=== PATIENT | female | born 1995 | race Caucasian/White ===

== ENCOUNTER 2022-07-09 12:55 | Outpatient (CLI) | payer OTHER, SELFPAY ==
--- NOTE | 2022-07-09 13:00 | CRLHL7_ITS ---
For Patients: As a result of the Cures Act, medical imaging exams and procedure reports are released immediately into your electronic medical record. You may view this report before your referring provider. If you have questions, please contact your health care provider. INDICATION: Evaluate size and dates TECHNIQUE: Ultrasound OB pelvis transvaginal. Real time patel scale imaging of the pelvis was performed. COMPARISON: None FINDINGS: Sonographic imaging demonstrates a single living intrauterine gestation. The embryo demonstrates a regular cardiac rate measuring 157 beats per minute. The embryo`s crown rump length measurement of 3.8 cm corresponds to a gestational age of 9 weeks 1 day with a sonographic due date of 02/08/2023 . There is a normal appearing yolk sac. There are no gross abnormalities noted within the embryo at this early state of development. The placenta has not yet developed. The gestational sac has a normal appearance. 0.5 centimeter x 1.3 centimeter x 0.7 centimeter subchorionic hemorrhage the amount of fluid within the sac appears appropriate for gestational age. The cervix is closed. The myometrium appears normal. The ovaries are of normal size. There are no suspicious fluid collections noted in the cul-de-sac. IMPRESSION: Viable intrauterine . Gestational age calculated at 9 weeks 1 day with a sonographic due date of 02/08/23. This compares to gestational age by LMP is 9 weeks 6 days. 0.5 centimeter x 1.3 centimeter x 0.7 centimeters subchorionic hemorrhage. Dictated by Jayson Simeon MD @ 07/10/2022 12:25:33 PM (Electronically Signed)
== END 2022-07-09 12:56 | disposition home or self-care (01) ==
PROVIDERS: PCP Physician Assistant; Visit Provider Obstetrics & Gynecology
DX: Z34.91 Encounter for supervision of normal pregnancy, unspecified, first trimester (principal); Z3A.09 9 weeks gestation of pregnancy
CPT/HCPCS: 76817

== ENCOUNTER 2022-07-09 14:52 | Outpatient (CLI) | payer OTHER, SELFPAY ==
[2022-07-09 21:43] LABS: Hepatitis B Surface Antigen* Negative (Negative)
[2022-07-09 21:53] LABS: HIV 1/2/P24 Combo Screen* Negative (Negative)
[2022-07-09 22:00] LABS: Hepatitis C Virus Antibody* Negative (Negative)
[2022-07-09 22:57] LABS: Chlamydia DNA Amplified* NOT DETECTED (No Detected); GC DNA Amplified* NOT DETECTED (No Detected)
[2022-07-11 23:16] LABS: Rapid Plasma Reagin (RPR) Non Reactive (Non Reactive)
[2022-07-12 07:40] LABS: Rubella Antibody IgG 92.1 IU/mL
== END 2022-07-09 14:53 | disposition home or self-care (01) ==
PROVIDERS: PCP Physician Assistant; Visit Provider Obstetrics & Gynecology
DX: Z34.91 Encounter for supervision of normal pregnancy, unspecified, first trimester (principal); O20.9 Hemorrhage in early pregnancy, unspecified; Z3A.09 9 weeks gestation of pregnancy
CPT/HCPCS: 86592; 86703; 86762; 86787; 86803; 86850; 86900; 86901; 87086; 87340; 87491; 87591

== ENCOUNTER 2022-09-20 13:54 | Outpatient (CLI) | payer OTHER, SELFPAY ==
--- NOTE | 2022-09-20 14:00 | CRLHL7_ITS ---
For Patients: As a result of the Century Cures Act, medical imaging exams and procedure reports are released immediately into your electronic medical record. You may view this report before your referring provider. If you have questions, please contact your health care provider. INDICATION: Evaluate anatomy. COMPARISON: 07/09/2022 TECHNIQUE: Real time patel scale imaging of the fetus was performed. FINDINGS: Sonographic imaging demonstrates a single living intrauterine gestation. Fetus demonstrates a regular cardiac rate of 147 beats per minute. Fetus has a longitudinal vertex position. The placenta lies posteriorly without evidence of placenta previa. The heads of the placenta is located 7.2 cm from the internal cervical os. Amniotic fluid volume appears normal. Single deepest vertical pocket: 5.0 cm. The cervix is closed and measures 3.2 cm in length. The composite ultrasound gestational age is calculated at 20 weeks 3 days with an estimated sonographic due date of 02/04/2023. The estimated weight is 354 grams which lies at the 54th %. The following biometric measurements were obtained: Biparietal diameter: 4.9 cm/20 weeks 5 days 68th% Head circumference: 17.8 cm/20 weeks 2 days 40th% Abdominal circumference: 15.6 cm/20 weeks 5 days 60th% Femur length: 3.2 cm/20 weeks 0 days 35th% The HC/AC ratio measures: 1.14 range (1.07-1.25) On anatomic survey, there is a normal appearance of the cerebral ventricles, cavum septi pellucidi, cisterna magna and cerebellum. The nose, lips, and facial profile appear normal. The cervical, thoracic and lumbar spine are well visualized and appear normal. There is a normal four-chamber heart view and the left and right ventricular outflow tracts appear normal. The diaphragm and stomach appear normal. The kidneys and bladder also appear normal. There is a normal three-vessel cord and cord insertion site. The four extremities appear normal. IMPRESSION: Normal OB ultrasound exam with concordance of clinical and sonographic dating. No intrinsic abnormalities noted on anatomic survey. Dictated by Jayson Hua MD @ 09/20/2022 3:14:05 PM (Electronically Signed)
== END 2022-09-20 13:55 | disposition home or self-care (01) ==
LOC: US 13:55
PROVIDERS: PCP Physician Assistant; Visit Provider Obstetrics & Gynecology
DX: Z34.92 Encounter for supervision of normal pregnancy, unspecified, second trimester (principal); Z3A.20 20 weeks gestation of pregnancy
CPT/HCPCS: 76805

== ENCOUNTER 2023-01-08 15:20 | Outpatient (CLI) | payer OTHER, SELFPAY | END 2023-01-08 15:21 | disposition home or self-care (01) | LOC: NFLDREF 01-09 15:13 | PROVIDERS: PCP Physician Assistant; Referring Provider Physician Assistant; Visit Provider Obstetrics & Gynecology | DX: Z34.93 Encounter for supervision of normal pregnancy, unspecified, third trimester (principal); Z3A.36 36 weeks gestation of pregnancy; Z36.85 Encounter for antenatal screening for Streptococcus B | CPT/HCPCS: 87081; 87653 ==

== ENCOUNTER 2023-02-04 13:57 | Outpatient (CLI) | payer OTHER, SELFPAY ==
--- NOTE | 2023-02-04 14:00 | CRLHL7_ITS ---
For Patients: As a result of the Century Cures Act, medical imaging exams and procedure reports are released immediately into your electronic medical record. You may view this report before your referring provider. If you have questions, please contact your health care provider. INDICATION: DECEL ON NST, AND CHECK FLUID LEVEL TECHNIQUE: Real time patel scale imaging of the fetus was performed. COMPARISON: 09/20/2022 FINDINGS: Sonographic imaging demonstrates a single living intrauterine gestation. Fetus demonstrates a regular cardiac rate of 139 beats per minute. Fetus has a vertex position. The placenta lies on the right. Amniotic fluid volume appears normal and there is a single deepest pocket of 4.2 cm. Mild internal echoes are present compatible with late 3rd trimester gestation. The estimated weight is 3362gm which lies at the 31st %. On the prior OB ultrasound dated 09/20/2022 the estimated weight was at the 54th percentile. BPD 75th percentile. HC 65th percentile. AC 15th percentile. FL 6th percentile. The fetus was active and demonstrated normal breathing movements. There was normal flexion and extension of the trunk and extremities. IMPRESSION: Normal biophysical profile score 8/8. Sonographic gestational age 38 weeks 4 days and sonographic due date 02/14/2023. Sonographic age 9 days behind the clinical age. Estimated weight 31st percentile. Abdominal circumference 15th percentile. Dictated by Jayson Hua MD @ 02/05/2023 9:06:21 AM (Electronically Signed)
== END 2023-02-04 13:58 | disposition home or self-care (01) ==
PROVIDERS: PCP Physician Assistant; Visit Provider Obstetrics & Gynecology
DX: O41.93X0 Disorder of amniotic fluid and membranes, unspecified, third trimester, not applicable or unspecified (principal); Z3A.38 38 weeks gestation of pregnancy
CPT/HCPCS: 76816; 76819

== ENCOUNTER 2023-02-05 05:32 | Inpatient (IN) | payer OTHER, SELFPAY ==
[2023-02-05] VITALS (68 sets, daily range): BP systolic 95–139; BP diastolic 52–88; PULSE 56–106; RESP 12–18; TEMP 35.5–37.2; O2SAT 84–100; BMI 32.3
[2023-02-05] MEDS: fentaNYL 100 MCG/2 ML inj IVP (06:17)
[2023-02-05 06:18] LABS: Basophils Absolute Auto 0.02 K/uL (0.00-0.30); Basophils Percent Auto 0.2 % (0.0-3.0); Eosinophils Absolute Auto 0.02 K/uL (0.00-0.50); Eosinophils Percent Auto 0.2 % (0.0-7.0); Hematocrit 43.9 % (33.0-51.0); Hemoglobin* 15.1 gm/dL (12.0-16.0); Immature Granulocytes Abs Auto 0.08 K/uL (0.00-0.30); Immature Granulocytes Pct Auto 0.9 %; Lymphocytes Percent Auto 16.9 % (20-44); Mean Corpuscular HGB Conc 34 gm/dL (32-36); Mean Corpuscular Hemoglobin 29 pg (26-34); Mean Corpuscular Volume 84 fL (80-100); Monocytes Percent Auto 5.5 % (0.0-11.0); Neutrophils Percent Auto 76.3 % (42.0-72.0); Platelet Count* 150 K/uL (140-440); RDW Coefficient of Variation % 13.2 % (11.5-15.5); Red Blood Count 5.23 m/uL (4.00-5.20); White Blood Count* 8.78 K/uL (4.50-11.00)
[2023-02-05] MEDS: SODIUM CHLORIDE 0.9 % (FLUSH) 10 ML SYRINGE IVF (06:18)
[2023-02-05 06:22] LABS: Slide Review Reflex No
[2023-02-05] MEDS: LACTATED RINGERS 1000 ML 1,000 ML IV (07:58)
[2023-02-05] MEDS: ROPIVACAINE 0.2% 100 ml 100 ML 12 MG EPIDURAL (08:40)
[2023-02-05] MEDS: LIDOCAINE 2% (PF) 5 ML VIAL EPIDURAL (08:40)
--- NOTE | 2023-02-05 08:53 | PM.ANBPRC ---
PFSH PFS Social History Smoking Status: Never smoker Little interest or pleasure in doing things: not at all Feeling down, depressed, or hopeless: not at all Meds Home Medications and Allergies Home Medications Medication Instructions Recorded Confirmed Type 103-folic acid 400 1 tab PO DAILY 07/09/22 02/05/23 History mcg-omeg3 32.5 mg-dha-fish oil chew tablet ( with DHA and Folic Acid) calcium carbonate 200 mg calcium 200 mg PO BID 01/15/23 02/05/23 History (500 mg) chewable tablet (Tums) Allergies Allergy/AdvReac Type Severity Reaction Status Date / Time No Known Drug Allergies Allergy Verified 02/05/23 04:00 Results Labs Labs: Laboratory Results - last 24 hr 02/05/23 06:05 WBC 8.78 RBC 5.23 H Hgb 15.1 Hct 43.9 MCV 84 MCH 29 MCHC 34 RDW Coeff of Lara 13.2 Plt Count 150 Neut % (Auto) 76.3 H Lymph % (Auto) 16.9 L [place] % (Auto) 5.5 Eos % (Auto) 0.2 Baso % (Auto) 0.2 Neut # (Auto) 6.70 Lymph # (Auto) 1.50 [place] # (Auto) 0.50 Eos # (Auto) 0.02 Baso # (Auto) 0.02 Abs Immat Gran (auto) 0.08 Imm/Tot Granulo (auto) 0.9 Vital Signs Vital Signs: Last Vital Signs Temp 98.9 F 02/05/23 06:21 Pulse 90 02/05/23 08:52 Resp 18 02/05/23 06:21 BP 107/56 L 02/05/23 08:52 Pulse Ox 97 02/05/23 08:50 Weight: 93.8 kg Height: 170.18 cm Anesthesia Procedures Epidural Insertion Patient Location: OB Start Time: 08:00 Stop Time: : Start Date: 02/05/23 Stop Date: 02/05/23 Reason for Block: procedure for pain Patient Position: sitting Performed By: Nicol Ren Preanesthetic Checklist: IV checked, risks and benefits discussed, monitors and equipment checked, pre-op evaluation, timeout performed and anesthesia consent Prep: chlorhexidine gluconate Monitoring: blood pressure monitoring, continuous pulse oximetry and heart rate Approach: midline Vertebral Space: lumbar (1-5) Epidural Technique: JUANITA saline Needle Type: Tuohy needle Injection Technique: continuous catheter (continuous catheter) Needle gauge: 17 Needle Length (cm): 10 cm Needle Insertion Depth (cm): 9 Catheter Gauge: 19 Catheter Type: multi-orifice Catheter at skin depth (cm): 15 Test Dose Result: negative and lidocaine 1.5% with epinephrine 1 to 200,000
[2023-02-05] MEDS: CALCIUM CARBONATE 500 MG CHEW PO ×2 (09:09→12:34)
[2023-02-05] MEDS: LACTATED RINGERS 1000 ML 1,000 ML 125 ML IV (11:57)
--- NOTE | 2023-02-05 12:32 | W.PM.LDBA ---
Subjective History of Present Illness Time Seen by Provider: 07:00 Date Seen: 02/05/23 Narrative: Patient is being admitted to Labor and Delivery for spontaneous labor. She is a 27 year old at 40.0 weeks gestation. Her full history and physical was dictated by Dr. Radha Shell on 01/15/23. Please see this for details. Active movement. Denies LOF, vaginal bleeding or abnormal vaginal discharge. Contractions every 2-3 minutes. OB - Problem Based A/P Additional Plan (1) : Status: Acute Plan - Expectant management - Augmentation as needed - Pain control: Epidural Delivery/Labor/Induction Plan Plan: expectant management OB Exam Physical Exam Vital signs: Temp Pulse Resp BP Pulse Ox 98.7 F 74 18 103/55 L 98 02/05/23 12:31 02/05/23 12:31 02/05/23 12:31 02/05/23 12:31 02/05/23 08:55 Narrative: Physical exam: General: Grimacing with contractions Psych: Alert and oriented x3, full affect HEENT: Normocephalic, atraumatic Lungs: Breathing through contractions Abdomen: gravid. Soft, nontender, nondistended in between contractions. No rebound or guarding Neuro: No focal deficit. Mentating appropriately Pelvic exam: /-1
[2023-02-05] MEDS: CEFAZOLIN 2 GM INJ IVP (13:47)
[2023-02-05] MEDS: AZITHROMYCIN 500 MG in 0.9 % SODIUM CHLORIDE 250 ml 250 ML 255 MG IVPB (13:50)
--- NOTE | 2023-02-05 14:57 | PM.OBPRCCS ---
Procedure Time Seen by Provider: 13:00 Date of procedure: 02/05/23 Will [facility] bill your pro fee for this procedure?: Yes Procedure Description: DELIVERY BY SECTION Date of Service: 02/05/2023 Delivery time: 1346 Summary: Palma was admitted for spontaneous labor at 0330 on 02/05/2023. Her labor progressed appropriately. She was AROM at 1220 with cervix dilated to 7/90/0 (clear fluid). She progressed to 10/100/+2 at 1320. tracing was category 1 the entire time up to this point. After pushing with 1 contraction, deceleration down to 60-100s from 130s for approximately 7 minutes. Patient was moved to the OR in anticipation of needing an emergency delivery. heart rate tracing recovered to 140s in the operating room. I discussed with patient the situation and offered an attempt at operative delivery given low station and recovered heart rate. Patient would like to try operative delivery first. With the next contraction, vacuum delivery was attempted. deceleration was noted down the 90s again. After pop off x1 with one traction, deceleration, minimal descent, and sudden meconium, decision was made to proceed with emergency delivery. Patient was placed under general anesthesia and iodine prep on abdomen at 1341. Findings: Tight nuchal cord x 1, Compound presentation. Normal uterus, bilateral ovaries and tubes 8/9, weight 3130 g. Primary Indication: Prolonged bradycardia Failed attempted vacuum delivery Procedures: Primary Lower uterine transverse section Specimens Removed: Placenta Surgeon: Waleska Vela MD Hand Blocker Surgeon: Delia Guerrero MD Anesthesia: General Report: Prophylactic antibiotic, 2 g of Ancef and 500 mg of Azithromycin was given in the OR during emergency section. After arrival to the operating room patient was placed in the supine position with left lateral tilt after administration of general anesthesia. Laparotomy A pfannenstiel incision was made through the anterior abdominal wall with #10 scalpel approximately 2 cm above the pubic symphysis. The incision was extended sharply with the #10 scalpel through the subcutaneous tissue to the level of fascia. The fascia was entered sharply with a #10 scalpel (Pfannenstiel) in the midline and extended in semi-elliptical fashion with digits. The rectus muscles were in the midline bluntly with digits. The peritoneum was then entered bluntly. The peritoneal incision was then extended superiorly and inferiorly under direct visualization with care being taken to avoid bladder and bowel. No adhesions were noted. The peritoneal incision was enlarged bluntly by lateral traction from the surgeon's and assistant professor of physics's hand. Benedicto retractor was inserted into the abdomen. Delivery Bladder flap was not developed. A low transverse hysterotomy was made then with #10 scalpel and extended laterally and cephalad with fingers in a low transverse fashion with Manu Kate technique with care being taken to avoid injury to the fetus. Vaginal hand used to elevated the head from below. The amniotic cavity (membrane) was then entered with spontaneous rupture of membrane, and the amniotic fluid was noted to be thick meconium stain, fetus was delivered cephalic with the assistance of vacuum at the hysterotomy due compound presentation and unable to reduce the hands to move the head in a flexed position. With delivery of the baby, no extension was noted. Placenta cord was avulsed and placenta was removed manually from uterine wall. Closure Uterine cavity was cleaned after placental delivery with lap sponge x 2. The hysterotomy was closed in one layer with stitches using 0 vicryl with continuous locking stitches. An imbricating layer of 0 Monocryl was placed. Hemostasis was achieved as needed with electrocautery. The ovaries/tubes/uterine surface were evaluated. They were found to be normal. Benedicto retractor removed and hemostasis was confirmed again. Fascia was closed with running stitches using 0 vicryl. Hemostasis was checked for and found to be adequate. The subcutaneous layer irrigated copiously and was closed with running 2-0 chromic sutures. The skin was closed with monocryl subcuticular sutures . The incision was cleaned and covered Steri-Strips and silver dressing and the procedure considered terminate at this time. Intraoperative Complications: None QBL: 530 cc Uterotonics: 40 unit of Pitocin, 1 g of TXA Disposition: The patient tolerated the procedure well. She was recovered in obstetric PACU for close monitoring in stable condition, with a contracted uterus and normal transvaginal bleeding. The infant was sent to mother's bedside. A segment of the cord was obtained for umbilical cord gases. Cord blood gas was not available at time of operative note entered. The placenta was not sent to pathology.
--- NOTE | 2023-02-05 14:57 | W.ANESCHARGE ---
Anesthesia Charges Start Date/Time Anesthesia Start Date: 02/05/23 Anesthesia Start Time: 13:35 Stop Date/Time Anesthesia Stop Date: 02/05/23 Anesthesia Stop Time: 14:53 Summary Emergency: THREAT ANALYST
--- NOTE | 2023-02-05 14:58 | P.NB_ITS ---
Nerve Block Nerve Block Time Seen by Provider: 14:44 Date Seen: 02/05/23 Type of block requested by surgeon for post-operative analgesia: TAP Side: bilateral Time out performed: Yes Verification of patient name: Yes Verification of date of : Yes Site marking: not applicable Name of person performing procedure: destini Continuous monitoring Was continuous monitoring of O2 sat, B/P, quality assurance monitor final, recorded every 15 minutes?: Yes Procedure Checklist: sterile prep, needles and gloves Ultrasound guided. Images saved: Yes Medications given in 5ml increments after negative aspiration: Marcaine %: 0.25 mL: 30 Needle gauge: 20 and Exparel mL: 10 Patient tolerated procedure well: Yes Block Charges Block Charge (with Pro Fee): TAP Bilateral Use of Ultrasound Machine for Block: Yes- US Guidance/pain block
[2023-02-05] MEDS: KETOROLAC 30 MG/ML inj IVP (20:05)
[2023-02-05] MEDS: CEFAZOLIN 2 GM in 0.9 % SODIUM CHLORIDE Mini-bag 100 ML IVPB (20:05)
[2023-02-06] VITALS (17 sets, daily range): BP systolic 104–123; BP diastolic 70–83; PULSE 66–77; RESP 14–18; TEMP 36.5–36.8; O2SAT 77–100
[2023-02-06] MEDS: CEFAZOLIN 2 GM in 0.9 % SODIUM CHLORIDE Mini-bag 100 ML IVPB ×2 (02:00→08:28)
[2023-02-06] MEDS: KETOROLAC 30 MG/ML inj IVP ×4 (02:01→21:30)
[2023-02-06 06:56] LABS: Hemoglobin* 12.1 gm/dL (12.0-16.0)
--- NOTE | 2023-02-06 08:16 | PM.OBPNVD1 ---
OB - PN:Subj Subjective Time Seen by Provider: 08:16 Date Seen: 02/06/23 Interval history: Palma is a 27 y.o. who was admitted to L & D for labor.? She had an primary emergency .? ? ? Narrative: The patient feels well.? The pain is well controlled with current medications.? She has no new complaints.? She is breast feeding and reports things are going ok. Baby tends to favor one side and is a little sleepy.? the patient has done well.? Vitals have been stable.? She has remained afebrile.? Has a good appetite, is tolerating a general diet.? Her catheter remains in place at this time.? She is passing gas and has not had a bowel movement.? She is ambulating and denies any dizziness.? Has Small amount of rubra lochia.?She has antibiotics ordered for the first 24 hours r/t emergency . OB - PN: Obj Exam Physical Exam: Vital signs: Temp Pulse Resp BP Pulse Ox O2 Del Method 97.7 F 71 16 117/78 99 Room Air 02/06/23 05:25 02/06/23 05:25 02/06/23 05:25 02/06/23 05:25 02/06/23 05:25 02/06/23 05:25 Narrative: VSS.? Afebrile? GENERAL APPEARANCE:? normal affect, alert, no distress? MOOD:? appropriate? HEENT: normocephalic, neck supple, full ROM? CHEST:? Symmetrical chest wall movement.? Normal respiratory effort.? Clear to auscultation? HEART:? regular rate and rhythm? ABDOMEN:? soft, non-tender. Uterine fundus is firm, at Umbilicus, Midline and is appropriate for the stage of recovery.? Bowel sounds present.? EXTREMITIES:? normal and trace edema? SKIN: warm, dry.? Dressing on, clean/dry/intact.? No signs of infection noted.? Urinary Catheter Management: Urethral: Cath placed during this visit: yes Urethral indwelling: Yes Reason for continuing: surgical procedure Insertion date: 02/05/23 Insertion time: 14:36 OB - PN: Obj Data Labs Labs: Laboratory Results - last 24 hr 02/05/23 02/06/23 06:05 06:35 Hgb 12.1 Blood Type A Negative Antibody Screen POSITIVE Antibody Identification Anti-D OB - PN: A/P Delivery Assessment and Plan (1) examination following delivery: Status: Acute (2) S/P emergency section: Status: Acute (3) Lactating mother: Status: Acute Plan day: 1 Comments: Assessment/Plan? G 1 P 1 status post primary emergency .? ?? 1.? Continue route PP cares? 2.? .? May see if desired? 3.? Anticipate discharge home tomorrow or the following day per pt preference? ?
[2023-02-06] MEDS: DOCUSATE SODIUM 100 MG CAPSULE PO (08:39)
[2023-02-07] MEDS: IBUPROFEN 600 MG TABLET PO ×4 (01:16→23:22)
[2023-02-07 01:20] VITALS: BP 115/68; PULSE 83; RESP 16; TEMP 36.6; O2SAT 95
[2023-02-07] MEDS: OXYCODONE 5 MG TABLET PO ×3 (03:58→14:06)
--- NOTE | 2023-02-07 07:31 | P.OBPN_ITS ---
OB - PN:Subj Subjective Date Seen: 02/07/23 Interval history: Palma is a 27 y.o. who was admitted to L & D for labor.? She had an primary emergency .? ? ? Patient comments OB post-: tolerating diet and flatus present [place] infant status: and doing well [place] feeding status: exclusively Narrative: The patient feels well.? She was tearful at the beginning of our conversation and felt better by the end. Discussed normal mood and emotions and concerns. Her pain increased during the night and into this morning. She states that it took her by surprise since it had been well controlled. She is feeling incisional pain and sore muscles in her neck, shoulders, and legs. She recently had oxycodone. Encouraged her to take ibuprofen and Tylenol routinely and supplement with the oxycodone. Encouraged rest and ice.? She has no new complaints.? Urinary output is adequate and she is voiding without difficulty.? Has a good appetite, is tolerating a general diet, is passing flatus, and has not had a bowel movement.? Has small amount of rubra lochia.? She is ambulating well.?She had initially wanted to discharge today but now would like to discharge tomorrow to make sure her pain is well controlled and she is feeling more comfortable going home. OB - PN: Obj Exam Physical Exam: Vital signs: Temp Pulse Resp BP Pulse Ox O2 Del Method 97.9 F 83 16 115/68 95 Room Air 02/07/23 01:20 02/07/23 01:20 02/07/23 01:20 02/07/23 01:20 02/07/23 01:20 02/07/23 01:20 Narrative: GENERAL APPEARANCE:? normal affect, alert, no distress? MOOD:? appropriate? CHEST:? clear to auscultation and percussion? HEART:? regular rate and rhythm? ABDOMEN:? soft, non-tender the uterine fundus is 2 cm Below Umbilicus, Midline and is appropriate for the stage of recovery. Incision covered with dressing that is clean dry and intact. No drainage noted on the dressing. EXTREMITIES:? normal and no edema? Urinary Catheter Management: Urethral: Cath placed during this visit: yes, but has since been removed by the nurse Urethral indwelling: Yes Reason for continuing: surgical procedure Insertion date: 02/05/23 Insertion time: 14:36 Removal date: 02/06/23 Removal time: 09:30 OB - PN: Obj Data Labs Labs: Laboratory Results - last 24 hr 02/05/23 06:35 Screen Negative OB - PN: A/P Delivery Assessment and Plan (1) examination following delivery: Status: Acute (2) S/P emergency section: Status: Acute (3) Lactating mother: Status: Acute Plan day: 2 Plan: routine care Comments: Would like to discharge home tomorrow. Routine cares today.
[2023-02-07] MEDS: ACETAMINOPHEN 500 MG TABLET 1000 MG PO ×3 (07:32→20:20)
[2023-02-07] MEDS: DOCUSATE SODIUM 100 MG CAPSULE PO (07:34)
[2023-02-07 07:38] VITALS: BP 128/85; PULSE 70; RESP 16; TEMP 36.6; O2SAT 99
[2023-02-07 17:00] VITALS: BP 126/81; PULSE 72; RESP 16; TEMP 36.3; O2SAT 98
[2023-02-07 23:18] VITALS: BP 129/87; PULSE 72; RESP 16; TEMP 36.8; O2SAT 100
[2023-02-08] MEDS: ACETAMINOPHEN 500 MG TABLET 1000 MG PO ×2 (02:07→08:51)
[2023-02-08] MEDS: LANOLIN CREAM 1 APPLIC TOPICAL (03:37)
[2023-02-08] MEDS: IBUPROFEN 600 MG TABLET PO (05:23)
[2023-02-08] MEDS: DOCUSATE SODIUM 100 MG CAPSULE PO (08:51)
--- NOTE | 2023-02-08 09:09 | PM.OBDSVD1 ---
DS: Providers Provider Time Seen by Provider: : Date Seen: 02/08/23 Date of admission: 02/05/23 05:32 Primary care physician: Zoë Mora PA-C Admitting Clinician: Tete Goldman MD Attending Physician on discharge: Radha Oliver MD Date of Discharge: 02/08/23 DS: Diagnosis Discharge Diagnosis (1) S/P emergency section: Status: Acute (2) Lactating mother: Status: Acute Exam Narrative: Exam Narrative: VITAL SIGNS: As noted above. GENERAL APPEARANCE: Alert, cooperative female in no acute distress. MOOD & AFFECT: Normal. ABDOMEN: Soft, non-distended and appropriately tender, incision healing well no surrounding erythema, induration or abnormal discharge. : Normal lochia. EXTREMITIES: Bilateral pitting edema +1. Well perfused. Nontender. Const: Vital Signs, click to edit/add: Vital Signs - 24 hr 02/07/23 17:00 02/07/23 23:18 Temperature 97.4 F L 98.3 F Pulse Rate [Pulse Oximeter] 72 72 Respiratory Rate 16 16 Blood Pressure [Le ft Arm] 126/81 129/87 Pulse Oximetry 98 100 Oxygen Delivery Me thod Room Air Room Air OB - DS: Summary Hospital Course Hospital Course: The patient is a 27 year old G 1 P 1 at 40 0/7 weeks gestation that was admitted to the Center on 02/05/23 in labor for delivery. Progressed to complete and with pushing a prolonged deceleration was identified and a code white was called. A trial at a operative delivery was attempted and a new concerning deceleration happened and recommendation for emergency delivery was made. She had an uncomplicated vaginal delivery. She delivered a viable male . She is breast feeding. the patient has done well. Peripartum Data Infant delivery method: Primary C/S; Labored Laceration description: None Procedures: Procedures Operation Date: 02/05/23 13:45 Actual Procedure Side Surgeon p Section Waleska Vela MD complications: none [place] Infant Gender: Male Infant Discharge Plan: Home Status at Discharge Functional status at discharge: independent ambulation Overall status at discharge: patient is progressing back to baseline Time Spent with Patient Time attestation: Total time spent providing and/or coordinating discharge services: Time spent: Less than 30 minutes Discharge Plan Discharge Disposition: Home, Self-Care Date of Admission: 02/05/23 05:32 Attending Provider on Discharge: Radha Oliver Primary Care Provider: Zoë Mora Condition: Stable Anticipated Discharge Date/Time: 02/08/23 09:33 Discharge Medications: New docusate sodium 100 mg Capsule 100 mg PO DAILY Qty: 15 0RF ibuprofen 600 mg Tablet 600 mg PO Q6H PRN (Reason: Pain) Qty: 30 0RF oxycodone 5 mg Tablet 5 - 10 mg PO Q4H PRN (Reason: Pain) Qty: 10 0RF Continued calcium carbonate [Tums] 200 mg calcium (500 mg) tablet,chewable 200 mg PO BID with DHA-Folic Acid 400-32.5 mcg-mg tablet,chewable 1 tab PO DAILY Discharge Orders: Discharge Order (Routine); Ordered 02/08/23 Ordered By: Radha Oliver Patient Education: OB /Breast Feeding Activity Level: Activity as Tolerated Activity Detail: Nothing vaginally for 6 weeks, no lifting more than 15-20 pounds for 6 weeks. Discharge Diet: Regular Follow Up Appointments: Zoë Mora [facility] [Primary Care Provider] - Forms: MyHealth Info Instructions Discharge Comments: Follow up with clinic in 1 weeks for incision check after removal of silver nitrate dressing. Follow up in clinic for 2 week visit mood and follow up, then at 6 weeks for usual visit.
[2023-02-08 09:58] VITALS: BP 125/82; PULSE 79; RESP 16; TEMP 36.8; O2SAT 98
== END 2023-02-08 12:00 | disposition home or self-care (01) | DRG 788 ==
LOC: OB OUT 05:43 → OB 05:43
PROVIDERS: Obstetrics & Gynecology; Admitting Provider Obstetrics & Gynecology; PCP Physician Assistant; Visit Provider Obstetrics & Gynecology
PROC: 10D00Z1 Extraction of Products of Conception, Low, Open Approach (ICD-10-PCS; CPT 59514; principal; 2023-02-05 13:30)
DX: O76 Abnormality in fetal heart rate and rhythm complicating labor and delivery (principal); O66.5 Attempted application of vacuum extractor and forceps; Z3A.40 40 weeks gestation of pregnancy; Z37.0 Single live birth; G89.18 Other acute postprocedural pain
CPT/HCPCS: 01967; 01968; 36415; 36430; 64488; 76942; 85018; 85025; 85461; 86850; 86870; 86880; 86900; 86901; 99140; A9270; C9290; J0330; J0456; J0665; J0690; J1100; J1170; J1885; J2274; J2371; J2405; J2590; J2704; J2791; J2795; J3010; J7050; J7120

== ENCOUNTER 2023-02-12 09:30 | Outpatient (CLI) | payer OTHER, SELFPAY ==
--- NOTE | 2023-02-12 17:00 | W.PM.LAC.MC ---
Consult Note - Mom Date of Visit Date of visit: 02/12/23 human capital consultant: Zoë Silva Visit Code: Visit Patient's Information Phone number: [phone] : 1 Para: 1 Allergies No Known Drug Allergies Allergy (Verified 02/19/23 10:54) Delivery Information Delivery type: Primary C/S; Labored (vacuum was attempted) Weeks Gestation: 40.0 Gestational Age: AGA Weight: 3.13 kg Discharge Weight: 2.815 kg Baby's Information Baby's Age at Visit: 8 days Baby's Provider or Clinic: Dr. Nguyen Jaundice: No Reason for Consult Reason for Consult: difficulty latching, weight loss Past Experience Past Experience: No Current Frequency of Day Feedings: every three hours arund the clock Both Breasts: Yes (mom attempts) Pumping Pumping: Yes (with the Haakaa) Quantity Pumped: 20 - 40 ml Supplementing EMB Supplement: Yes (POC give 20 - 40 ml with syringe) Formula Supplement: No Baby Elimination Number of Wet Diapers a Day: about 6 Number of BM a Day: about 4, yellow and seedy Breast/Nipple Condition Breast Information: WNL Engorgement: No Maternal Nipple Condition - Left: Common Nipple Maternal Nipple Condition - Right: Common Nipple Sore Nipples: No Onsite Pre-Feed weight: 2.736 kg Post-Feed weight: 2.786 kg Milk Transferred (mL): 50 Assessments/Interventions Assessments/Interventions: Met with mom and this now 8 day old ex- term AGA baby for consult. Mom reports she's been unable to latch him since D/C even though she attempts with every feeding. Also states baby is very sleepy so POC are waking him every three hours. After attempting to latch him, POC will give 20 - 40 ml EBM by syringe. Mom is only using the Haakaa (tries to latch on one side while using the Haakaa on the other) and gets between 20 - 40 ml each time. POC reports baby seems content after feeding. Breasts WNL- symmetrical with rounded lower quadrants, intramammary distance is < 1.5 inches. Nipples are everted and don't flatten or retract on compression. Baby has lost 45 grams since his NB visit on 02/10 and is now 13% below BW at 8 DOL. Baby with hx of caput from attempted vacuum, but this has resolved. No s/s of jaundice. POC report he prefers to turn his head to the right, but has equal ROM when moving his extremities. His palate is a little elevated. His upper frenulum is tight with his upper lip being difficult to flange. He has a fairly strong suck on a finger but the tongue slips behind the gum line and that causes him to loose his hold on the finger. There's some canoeing with lateralization. His lower frenulum appears to be WNL. Mom attempted to latch baby to the right side but even with assistance we were unsuccessful in both the cross cradle and football hold. Baby doesn't seem to sense that the breast/nipple is in his mouth or he'll take a few sucks and loose the latch. When a 20 mm nipple shield was applied, baby latched easily. The latch appeared wide and mom was comfortable. Swallowing was heard and when baby came off after about 5 minutes, milk was in the shield. Mom latched him again to the right and he nursed another 5 minutes, coming off on his own. After a few attempts she was able to latch him to the left side with the shield and he nursed another 10 minutes. He transferred 50 ml. Dad was shown an exercise to hopefully help teach baby to keep his tongue over the gum line. Plan: 1. Continue to nurse every three hours or more often if he shows feeding cues. Offer both sides, use the shield for now, make sure he's awake and actively nursing. 2. Mom will pump to empty if he has a poor nursing session. Can hand express or use her Haakaa to comfort if he has a good feeding but she's still uncomfortable. 3. Mom will either add in one extra nursing session/24 hours OR add in a bottle feeding/24 hours until he starts to regain some weight. 4. Will f/u for a weight check on 02/13 and I will f/u by phone on 02/19. Meds Home Medications and Allergies Home Medications Medication Instructions Recorded Confirmed Type 103-folic acid 400 1 tab PO DAILY 07/09/22 02/05/23 History mcg-omeg3 32.5 mg-dha-fish oil chew tablet ( with DHA and Folic Acid) Allergies Allergy/AdvReac Type Severity Reaction Status Date / Time No Known Drug Allergies Allergy Verified 02/19/23 10:54
== END 2023-02-12 09:31 | disposition home or self-care (01) ==
PROVIDERS: PCP Physician Assistant; Visit Provider Obstetrics & Gynecology
DX: Z39.1 Encounter for care and examination of lactating mother (principal)
CPT/HCPCS: 99211

== ENCOUNTER 2023-06-09 11:33 | Day surgery (SDC) | payer OTHER, SELFPAY ==
[2023-06-09] VITALS (14 sets, daily range): BP systolic 115–153; BP diastolic 61–92; PULSE 50–67; RESP 12–16; TEMP 36.2–36.7; O2SAT 96–100; BMI 30.2
[2023-06-09] MEDS: LACTATED RINGERS 1000 ML 1,000 ML 100 ML IV ×2 (11:40→12:48)
--- NOTE | 2023-06-09 11:47 | P.GSOP_ITS ---
Operative Note Pre-op diagnosis: Biliary colic Post-op diagnosis: Same Type of Procedure: Laparoscopic cholecystectomy Indications: The patient is a 27-year-old female who presented to clinic with multiple episodes of right upper quadrant pain, nausea and vomiting which would come on in the evening after meals and wake her up at night. Workup revealed cholelithiasis. After discussion of options she agreed to proceed with cholecystectomy. Procedure Description: After discussing the risks and benefits of the procedure, the patient signed informed consent.? The operative site was marked and the patient was brought to the operating room and placed on the operating table in supine position.? Care was taken to pad the patient's pressure points.?? The patient was then [intubated/given sedation] by anesthesia.?? The operative site was then prepped and draped in the usual sterile fashion.? A time-out was then performed. Entrance to the abdomen was gained via Da Silva technique just below the umbilicus. The abdomen was insufflated. 5 mm Ports were placed in both the right and left upper quadrants as well as in the right mid/lateral abdomen. This was under direct vision. The patient was then placed in reverse Trendelenburg position with the right side up. The gallbladder fundus was grasped and retracted cephalad. A combination of hook cautery and blunt dissection was used to carefully dissect out the cystic duct and artery until they could clearly be seen entering the gallbladder without any intervening structures. The gallbladder was dissected off the cystic plate to achieve the critical view. The cystic artery was 1st clipped with 2 clips proximal and 1 clip distal. This was divided with a scissor. There was a small amount of oozing still coming from the proximal end. Therefore an additional clip was placed distal to the other 2 clips. This resulted in cessation of bleeding. The source appeared to be a small collateral branch vessel traveling along the posterior aspect of the cystic duct also going into the gallbladder. This was clipped proximally and divided with cautery. This resulted in excellent h emostasis. Once this was done, the cystic duct was clipped with 2 clips proximal 1 clip distal. This was transected with scissors. The gallbladder was then taken off the liver bed using cautery. A small lateral peritoneal vessel was clipped and then cauterized on the gallbladder side. Once the gallbladder was free, it was removed from the abdomen using an Endo-Catch bag. The gallbladder bed was surveyed for hemostasis which appeared excellent. The ports were then removed and the abdomen desufflated. The umbilical port fascia was closed with 0 Vicryl. The skin was closed with absorbable subcuticular suture. Sterile dressings were then applied. Instrument sponge and needle counts were correct at the end of the case. The patient was then woken and transferred to the PACU in stable condition. ? The patient tolerated the procedure well. Findings: None Anesthesia: GETA Surgeon: Palma Xiong MD Estimated blood loss (mL): 10 Specimen: Gallbladder Condition: stable Disposition: PACU Date of procedure: 06/09/23
[2023-06-09 11:56] LABS: Ur HCG Qualitative* Negative (Negative)
--- NOTE | 2023-06-09 12:04 | W.ANESCHARGE ---
Anesthesia Charges Start Date/Time Anesthesia Start Date: 06/09/23 Anesthesia Start Time: 12:11 Stop Date/Time Anesthesia Stop Date: 06/09/23 Anesthesia Stop Time: 13:40
[2023-06-09] MEDS: SODIUM CHLORIDE 0.9 % (FLUSH) 10 ML SYRINGE IVF (12:05)
[2023-06-09] MEDS: CEFAZOLIN 2 GM INJ IVP (12:25)
[2023-06-09] MEDS: BUPIVACAINE 0.25% 30 ML INJECTION (13:22)
--- NOTE | 2023-06-09 13:39 | W.ANESCHARGE ---
Anesthesia Charges Start Date/Time Anesthesia Start Date: 06/09/23 Anesthesia Start Time: 12:11 Stop Date/Time Anesthesia Stop Date: 06/09/23 Anesthesia Stop Time: 13:40
[2023-06-09] MEDS: ONDANSETRON 2 MG/ML inj 4 MG IVP (13:43)
[2023-06-09] MEDS: METOCLOPRAMIDE HCL 5 MG/ML INJ 10 MG IVP (14:01)
[2023-06-09] MEDS: HYDROCODONE-ACETAMIN 5-325 MG 1 TAB PO (14:54)
== END 2023-06-09 15:44 | disposition home or self-care (01) ==
PROVIDERS: PCP Physician Assistant; Visit Provider Surgery
PROC: 0FT44ZZ Resection of Gallbladder, Percutaneous Endoscopic Approach (ICD-10-PCS; CPT 47562; principal; 2023-06-09 13:00)
DX: K80.20 Calculus of gallbladder without cholecystitis without obstruction (principal)
CPT/HCPCS: 47562; 790; 81025; 88304; A9270; J0330; J0665; J0690; J1100; J1170; J1885; J2250; J2405; J2704; J2765; J3010; J3490; J7120

== ENCOUNTER 2024-03-02 17:01 | Outpatient (CLI) | payer OTHER, SELFPAY ==
--- NOTE | 2024-03-02 17:00 | US_ITS ---
Patient: GEM DINERO Facility:?[facility] Patient ID:?[id number] Site Patient ID:?[id number]. Site :?[id number] Study:?US-OB Pelvis 1st trimester-03/02/2024 7:02:47 PM Ordering Physician:CHIN FARAH Final Report: INDICATION: Dating and viability. LMP 12/23/2023. COMPARISON: None. TECHNIQUE: Real-time patel-scale imaging of the pelvis was performed. FINDINGS: Sonographic imaging demonstrates a single living intrauterine gestation. The embryo has a regular cardiac rate measuring 176 beats per minute. The embryo`s crown-rump length measures 3.2 cm which corresponds to a gestational age of 10 weeks 1 day with sonographic due date 09/27/2024. There is a normal-appearing yolk sac. The placenta has not yet developed. No evidence of a perigestational hemorrhage. The right ovary measures 3.1 x 2.3 x 1.7 cm and the left ovary measures 3.0 x 1.7 x 2.2 cm. No free fluid in the pelvic cul-de-sac. IMPRESSION: 1. Single living intrauterine gestation corresponding to an ultrasound gestational age of 10 weeks 1 day with sonographic due date 09/27/2024. 2. The clinical gestational age by LMP is 10 weeks 0 days. Dictated by Pauline Yarbrough MD @ 03/03/2024 2:47:39 AM Signed by:?Pauline Yarbrough MD @03/03/2024 2:47:39 AM (Electronic Signature)
== END 2024-03-02 17:02 | disposition home or self-care (01) ==
LOC: US 17:01
PROVIDERS: PCP Physician Assistant; Visit Provider Physician Assistant
DX: Z34.91 Encounter for supervision of normal pregnancy, unspecified, first trimester (principal); Z3A.10 10 weeks gestation of pregnancy
CPT/HCPCS: 76801; 76817; 86592; 86703; 86704; 86706; 86747; 86762; 86787; 86803; 86850; 86900; 86901; 87086; 87340; 87491; 87591

== ENCOUNTER 2024-03-02 18:25 | Outpatient (CLI) | payer OTHER, SELFPAY ==
--- OUTSIDE RECORDS SUMMARY | 2024-03-02 18:27 | XMS_ITS | Clinical Summary ---
Author Organization [facility] Address [place], [place] [address] Care Team Providers Care Airport Screener Name Role Phone Zoë Mora Primary Care Provider [phone]- [phone] Allergies No known active allergies Medications Medication Sig Dispensed Refills Start Date End Date Status LORazepam (ATIVAN) 0.5 mg tabIndications:P anic attack Take 1 Tablet (0.5 mg) by mouth every 6 hours if needed for Anxiety. 5 Tablet 05/04/2021 Active hydrocortisone (ANUSOL-HC SUPPOSITORY) 25 mg suppositoryIndic ations:Hemorrhoi ds, internal Insert 1 Suppository (25 mg) rectally two times daily. 24 Suppository 04/14/2023 Active Active Problems Problem Noted Date Diagnosed Date Family history of colon cancer 05/04/2021 Overview: Father diagnosed age 50, due for colonoscopy age 40 Atypical nevi 02/20/2016 Overview: Blue nevi, right upper chest. Present since . Zoë Mora PA-C, Family Medicine.....................02/20/2016 10:29 AM Scoliosis 04/11/2010 Health supervision of other healthy or child receiving care 06/11/2006 Resolved Problems Problem Noted Date Diagnosed Date Resolved Date FUSED LABIA 06/11/2006 11/10/2008 Overview: RESOLVED Immunizations Name Administration Dates Next Due AMB Influenza, IIV3 (Age >=3 years) Preserve Free (Flu Clinic Only) 05/06/2011 AMB Influenza, IIV3 (Age >=3 years)(Flu Clinic Only) 04/18/2010,04/26/2009,05/20/2008 COVID-19 vaccine (Moderna 100mcg/0.5mL) PF, MDV 11/12/2020,10/15/2020 DTaP 06/11/1999 DTaP-HIB (TriHIBIT) 12/12/1995, 5,1994,08/15 Hepatitis A (Peds) 12/04/2012,06/24/2012 Hepatitis B (Peds) 12/13/1995,1994, 994 Human Papilloma Virus Vaccine 12/04/2012, 012,05/20/2012 Influenza, IIV3 (Age >=3 years) 05/20/2012,05/11 Influenza, IIV4 05/04/2021,04/24/2017,04/11/2014 MMR 06/06/2004,09/10/1995 Meningococcal Vaccine (Menactra) 12/04/2012 Oral Polio Vaccine 06/11/1999, 5,1994,08/15 Td, Preservative Free (age >= 7 Years) 9 Tdap 06/11/2006 Tuberculin (PPD) 06/09/1995 Varicella Vaccine 12/07/2007,09/10/1995 Family History Medical History Relation Name Comments Cancer-colon Father Diabetes Maternal Grandmother Good Health Mother Good Health Sister 2 Relation Name Status Comments Father Alive Maternal Grandmother Mother Alive Sister 1 Alive Sister 2 Social History Tobacco Use Types Packs/Day Years Used Date Smoking Tobacco: Never Smokeless Tobacco: Never Tobacco Cessation:Counseling Given: Yes Alcohol Use Standard Drinks/Week Comments Yes 0 (1 standard drink = 0.6 oz pur e alcohol) 1xweek PHQ-2 Answer Date Recorded PHQ-2 TOTAL SCORE 0 04/14/2023 Social Connections Answer Date Recorded Frequency of Communication with Friends and Fami ly Not on file 06/30/2021 Financial Resource Strain Answer Date R ecorded Difficulty of Paying Living Expenses Not on file 06/30/2021 Difficulty of Paying Living Expenses Not on file 06/30/2021 Sex and Gender Information Value Date Recorded Sex Assigned at Not on file Gender Identity Not on file Sexual Orientation Not on file Obstetrics History Para Term AB IAB SAB Ectopic Multiple Livin g Live Births 1 0 0 0 0 0 0 0 0 0 Date Outcome GA Total Labor Labor/2nd/3rd Weight Sex Type Anes PTL Diana A1 A5 Name Clin Last Filed Vital Signs Vital Sign Reading Time Taken Comments Blood Pressure 119/76 05/27/2023 3:06 PM INFECTIOUS DISEASE TECHNICIAN Pulse 67 05/27/2023 3:06 PM INFECTIOUS DISEASE TECHNICIAN Temperature 36.6 ??C (97.9 ??F) 07/05/2021 7:05 PM CS T Respiratory Rate 18 07/05/2021 7:05 PM INFECTIOUS DISEASE TECHNICIAN Oxygen Saturation 100% 05/27/2023 3:06 PM INFECTIOUS DISEASE TECHNICIAN Inhaled Oxygen Concentration - - Weight 87.4 kg (192 lb 11.2 oz) 05/27/2023 3:06 PM INFECTIOUS DISEASE TECHNICIAN Height 170.2 cm (5' 7) 05/04/2021 9:28 AM CDT Body Mass Index 30.18 05/04/2021 9:28 AM CDT Plan of Treatment Health Maintenance Due Date Last Done Comments HIV for age 15-65 2009 Hepatitis C screening for age 18-79 2012 BMI (ht and wt on same day) for age 18+ 05/04/2022 05/04/2021, 10/19/2018, 02/16/2016 COVID-19 vaccine series ( season) 2024 07/12/2021, 11/12/2020, 10/15/2020 Influenza for age 9-49 02/29/2024 , 04/24/2017, 04/11/2014, Additional history exists Depression screening for age 12+ 04/14/2024 04/14/2023, 10/19/2018, 10/19/2018, Additional history exists Pap test for age 21-65 05/04/2026 05/04/2021, 2020 Tetanus booster 10/19/2028 10/19/2018, 06/11/2006 Tdap Completed 06/11/2006 Pneumococcal series for age 6-64 Aged Out No longer eligible based on patient's age to complete this topic Procedures Procedure Name Priority Date/Time Associated Diagnosis Comments ASSOCIATE PROFESSOR OF GEOGRAPHY THIN PREP PAP SCREEN IMAGED Routine 05/04/2021 10:00 AM CDT Screening for malignant neoplasm of cervix from Last 3 Months or Most Recently Relevant to Health Maintenance Results * ASSOCIATE PROFESSOR OF GEOGRAPHY THIN PREP PAP SCREEN IMAGED [[id number]] (05/04/2021 10:00 AM CDT) Case Report Gynecologic Cytology Report ? Case: [id number] ? Authorizing Provider: ??Zoë Mora PA ?Collected: ? 05/04/2021 1000 ? Ordering Location: ? [facility] ?Received: ?05/04/2021 1005 ? Clinic ? First Screen: ?Ash Kumar ? Specimen: ?ASSOCIATE PROFESSOR OF GEOGRAPHY ThinPrep Vial Screening, Cervical ? 05/20/2021 9:52 AM [facility] INTERPRETATION/ RESULT NEGATIVE FOR INTRAEPITHELIAL LESION OR MALIGNANCY (NIL) (none) 05/20/2021 9:52 AM [facility] IMEN ADEQUACY Satisfactory for evaluation Endocervical component present 05/20/2021 9:52 AM INFECTIOUS DISEASE TECHNICIAN [facility] HPV REQUEST HPV and PAP 05/20/2021 9:52 AM INFECTIOUS DISEASE TECHNICIAN [facility] Date of LMP 04/27/21 05/20/2021 9:52 AM INFECTIOUS DISEASE TECHNICIAN [facility] Last Pap Date first pap 05/20/2021 9:52 AM [facility] Last Pap Result First Pap/Unknown 9:52 AM INFECTIOUS DISEASE TECHNICIAN [facility] Abnormal Pap or [place] Bx in last 5 years No 05/20/2021 9:52 AM [facility] Menstrual Status Regular Periods 05/20/2021 9:52 AM [facility] [place] Bx Done Today No 05/20/2021 9:52 AM [facility] Additional Information None given 05/20/2021 9:52 AM [facility] Comment: Cytology is screened at [facility] - [address], [place] [address] and [facility] - [address], [place] [address] and [facility] - [address] [place] [address] Interpreted at [facility] - [address], [place] [address] Automated Review Successful 05/20/2021 9:52 AM INFECTIOUS DISEASE TECHNICIAN [facility] Comment:Specimen processed s uccessfully by automated hardboard supervisor device, ThinPrep Imaging System, [employer] ANCILLARY TESTING ASSOCIATE PROFESSOR OF GEOGRAPHY HPV Ordered, Please see separate report 05/20/2021 9:52 AM INFECTIOUS DISEASE TECHNICIAN [facility] Note The pap test is a screening technique, not a diagnostic procedure. It is used primarily to screen for squamous cancers and precursor lesions. Published studies have shown that it is subject to both false negative and false positive results. The pap test should not be used as the sole means to diagnose or exclude pre-malignant and malignant lesions. 05/20/2021 9:52 AM INFECTIOUS DISEASE TECHNICIAN [facility] Other (Cervical) Non-Blood / Unknown 05/04/2021 10:00 AM CDT 05/04/2021 10:05 AM CDT Zoë ALBERTO PATHOLOGY/CYTOLOGY [facility] [address] [place] [address], from Last 3 Months or Most Recently Relevant to Health Maintenance Care Teams Airport Screener Relationship Specialty Start Date End Date Zoë Mora PA [facility] [place] [address] PCP - General Physician Manager Of Production 04/14/23
[2024-03-02 22:29] LABS: Chlamydia DNA Amplified* NOT DETECTED (No Detected); GC DNA Amplified* NOT DETECTED (No Detected)
== END 2024-03-02 18:26 | disposition home or self-care (01) ==
PROVIDERS: PCP Physician Assistant; Visit Provider Physician Assistant
DX: Z34.81 Encounter for supervision of other normal pregnancy, first trimester (principal)
CPT/HCPCS: 86592; 86703; 86704; 86706; 86747; 86762; 86787; 86803; 86850; 86900; 86901; 87086; 87340; 87491; 87591

== ENCOUNTER 2024-05-10 14:52 | Outpatient (CLI) | payer OTHER, SELFPAY ==
--- NOTE | 2024-05-10 15:00 | CRLHL7_ITS ---
For Patients: As a result of the Century Cures Act, medical imaging exams and procedure reports are released immediately into your electronic medical record. You may view this report before your referring provider. If you have questions, please contact your health care provider. INDICATION: Evaluate anatomy. COMPARISON: 03/02/2024 TECHNIQUE: Real time patel scale imaging of the fetus was performed as well as color Doppler analysis of the umbilical vessels. FINDINGS: Sonographic imaging demonstrates a single living intrauterine gestation. Fetus demonstrates a regular cardiac rate of 155 beats per minute. Fetus has a vertex position. The placenta lies posteriorly without evidence of placenta previa. Amniotic fluid volume appears normal. Single deepest vertical pocket: 4.4 cm. The cervix is closed and measures 3.6 cm in length. The composite ultrasound gestational age is calculated at 20 weeks 4 days with an estimated sonographic due date of 09/23/2024. The estimated weight is 363 grams which lies at the 84th %. The following biometric measurements were obtained: Biparietal diameter: 5.0 cm/21 weeks 0 days 90th% Head circumference: 17.9 cm/20 weeks 2 days 65th% Abdominal circumference: 15.5 cm/20 weeks 4 days 71st% Femur length: 3.4 cm/20 weeks 3 days 66th% The HC/AC ratio measures: 1.16 range (1.07-1.25) On anatomic survey, there is a normal appearance of the cerebral ventricles, cavum septi pellucidi, cisterna magna and cerebellum. The nose, lips, and facial profile appear normal. The cervical, thoracic and lumbar spine are well visualized and appear normal. There is a normal four-chamber heart view and the left and right ventricular outflow tracts appear normal. The diaphragm and stomach appear normal. The kidneys and bladder also appear normal. There is a normal three-vessel cord and cord insertion site. The four extremities appear normal. IMPRESSION: Normal OB ultrasound exam with concordance of clinical and sonographic dating. No intrinsic abnormalities noted on anatomic survey. Dictated by Jayson Hua MD @ 05/11/2024 10:22:02 AM (Electronically Signed)
--- OUTSIDE RECORDS SUMMARY | 2024-05-10 15:02 | XMS_ITS | Clinical Summary ---
Author Organization [facility] Address [place], [place] [address] Care Team Providers Care Manager Documentation Name Role Phone Zoë Mora Primary Care Provider [phone] Allergies No known active allergies Medications Medication [...] Date Family history of colon cancer 05/04/2021 Overview (05/04/2021): Father diagnosed age 50, due for colonoscopy age 40 Atypical nevi 02/20/2016 Overview (02/20/2016): Blue nevi, right upper chest. Present since . Zoë Mora PA-C, Family Medicine.....................02/20/2016 10:29 AM Scoliosis 04/11/2010 Health supervision of other healthy infant or child receiving care 06/11/2006 Resolved Problems Problem Noted Date Diagnosed Date Resolved Date FUSED LABIA 06/11/2006 11/10/2008 Overview (06/11/2006): RESOLVED Encounters Date Type Department Care Team Description 03/02/2024 Orders Only [facility] Scanner 1 scan: (1-Ord) [facility] OB TRANSVAGINAL, 03/02/2024 from Last 3 Months Immunizations Name Administration Dates Next Due AMB [...] Comments Blood Pressure 119/76 05/27/2023 3:06 PM CLINICAL PHARMACOLOGIST Pulse 67 05/27/2023 3:06 PM CLINICAL PHARMACOLOGIST Temperature 36.6 ??C (97.9 ??F) 07/05/2021 7:05 PM CS T Respiratory Rate 18 07/05/2021 7:05 PM CLINICAL PHARMACOLOGIST Oxygen Saturation 100% 05/27/2023 3:06 PM CLINICAL PHARMACOLOGIST Inhaled Oxygen Concentration - - Weight 87.4 kg (192 lb 11.2 oz) 05/27/2023 3:06 PM CLINICAL PHARMACOLOGIST Height 170.2 cm (5' 7) 05/04/2021 9:28 [...] Procedure Name Priority Date/Time Associated Diagnosis Comments SCAN-ULTRASOUND REPORT 03/02/2024 12:00 AM CDT MUSIC SOUND LIGHT TECHNICIAN THIN PREP PAP SCREEN IMAGED Routine 05/04/2021 10:00 AM CDT Screening for malignant neoplasm of cervix from Last 3 Months or Most Recently Relevant to Health Maintenance Results * SCAN-ULTRASOUND REPORT (03/02/2024 12:00 AM CDT) Anatomical Region Laterality Modality Other Scanner OTHER * MUSIC SOUND LIGHT TECHNICIAN THIN PREP PAP SCREEN IMAGED [[id number]] (05/04/2021 10:00 AM CDT) Case Report Gynecologic Cytology Report ? Case: [id number] ? Authorizing Provider: ??Zoë Mora PA ?Collected: ? 05/04/2021 1000 ? Ordering Location: ? [facility] ?Received: ?05/04/2021 1005 ? Clinic ? First Screen: ?Ash Kumar ? Specimen: ?MUSIC SOUND LIGHT TECHNICIAN ThinPrep Vial Screening, Cervical ? 05/20/2021 9:52 AM [facility] [employer] [employer] [facility]- ENTRAL LABORATORY INTERPRETATION/ RESULT NEGATIVE FOR INTRAEPITHELIAL LESION OR MALIGNANCY (NIL) (none) 05/20/2021 9:52 AM [facility] ENTRAL LABORATORY IMEN ADEQUACY Satisfactory for evaluation Endocervical component present 05/20/2021 9:52 AM [facility] [employer] [facility] ENTRAL LABORATORY HPV REQUEST HPV and PAP 05/20/2021 9:52 AM [facility] [employer] [employer] [facility] Date of LMP 04/27/21 05/20/2021 9:52 AM [facility] Last Pap Date first pap 05/20/2021 9:52 AM [facility] EN[facility] LAB[facility] Last Pap Result First Pap/Unknown 9:52 AM [facility] [employer] LABORATORY- ENTRAL LABORATORY Abnormal Pap or Dennis Bx in last 5 years No 05/20/2021 9:52 AM [facility] [employer] [facility] ENTRAL LABORATORY Menstrual Status Regular Periods 05/20/2021 9:52 AM [facility] [employer] [facility] ENTRAL LABORATORY Dennis Bx Done Today No 05/20/2021 9:52 AM [facility] [employer] [facility] ENTRAL LAB[facility]ATORY Additional Information None given 05/20/2021 9:52 AM [facility] [employer] [facility] ENTRAL LABORATORY Comment: Cytology is screened at [facility] Central Laboratory - [address], [place] [address] and [facility] - [address] [place] [address], [place] [address] and [facility] - [address] [place] [address] Interpreted at [facility] - [address] [place] [address], [place] [address] Automated Review Successful 05/20/2021 9:52 AM [facility] LAB[facility] Comment:Specimen processed s uccessfully by automated cold roll inspector device, ThinPrep Imaging System, [employer] ANCILLARY TESTING MUSIC SOUND LIGHT TECHNICIAN HPV Ordered, Please see separate report 05/20/2021 9:52 AM [facility] Note The pap test is a screening technique, not a diagnostic procedure. It is used primarily to screen for squamous cancers and precursor lesions. Published studies have shown that it is subject to both false negative and false positive results. The pap test should not be used as the sole means to diagnose or exclude pre-malignant and malignant lesions. 05/20/2021 9:52 AM [facility] LAB[facility] Other (Cervical) Non-Blood / Unknown 05/04/2021 10:00 AM CDT 05/04/2021 10:05 AM CDT Zoë ALBERTO PATHOLOGY/CYTOLOGY [facility] [address] [place] [address], [place] from Last 3 Months or Most Recently Relevant to Health Maintenance Care Teams Manager Documentation Relationship Specialty Start Date End Date Zoë Mora PA [address] [place] [address] PCP - General Physician Environmental Project Manager 04/14/23
== END 2024-05-10 14:53 | disposition home or self-care (01) ==
LOC: US 14:53
PROVIDERS: PCP Physician Assistant; Visit Provider Obstetrics & Gynecology
DX: Z34.92 Encounter for supervision of normal pregnancy, unspecified, second trimester (principal); Z3A.20 20 weeks gestation of pregnancy
CPT/HCPCS: 76805

== ENCOUNTER 2024-07-06 15:42 | Outpatient (CLI) | payer OTHER, SELFPAY | END 2024-07-06 15:43 | disposition home or self-care (01) | LOC: NFLDREF 15:42 | PROVIDERS: PCP Physician Assistant; Visit Provider Obstetrics & Gynecology | DX: Z34.82 Encounter for supervision of other normal pregnancy, second trimester (principal); Z67.11 Type A blood, Rh negative | CPT/HCPCS: 86592; 86850; J2791 ==

== ENCOUNTER 2024-08-30 12:49 | Outpatient (CLI) | payer OTHER, SELFPAY | END 2024-08-30 12:50 | disposition home or self-care (01) | LOC: US 12:50 | PROVIDERS: PCP Physician Assistant; Visit Provider Obstetrics & Gynecology | DX: O34.219 Maternal care for unspecified type scar from previous cesarean delivery (principal); Z3A.36 36 weeks gestation of pregnancy | CPT/HCPCS: 76816; 87081; 87653 ==

== ENCOUNTER 2024-09-28 00:23 | Inpatient (IN) | payer OTHER, SELFPAY ==
[2024-09-27 22:58] VITALS: PULSE 71; O2SAT 98
[2024-09-27 23:00] VITALS: BP 131/73; PULSE 68; RESP 16; TEMP 36.4
[2024-09-28] VITALS (52 sets, daily range): BP systolic 110–145; BP diastolic 59–83; PULSE 58–105; RESP 15–18; TEMP 36.1–36.7; O2SAT 92–100; BMI 26.6
[2024-09-28] MEDS: LACTATED RINGERS 1000 ML 1,000 ML 125 ML IV (00:39)
[2024-09-28 00:46] LABS: Basophils Absolute Auto 0.03 K/uL (0.00-0.30); Basophils Percent Auto 0.3 % (0.0-3.0); Eosinophils Absolute Auto 0.09 K/uL (0.00-0.50); Eosinophils Percent Auto 0.9 % (0.0-7.0); Hematocrit* 44.2 % (33.0-51.0); Hemoglobin* 15.2 gm/dL (12.0-16.0); Immature Granulocytes Abs Auto 0.11 K/uL (0.00-0.30); Immature Granulocytes Pct Auto 1.1 %; Lymphocytes Absolute Auto 3.13 K/uL (0.90-2.90); Lymphocytes Percent Auto 32.2 % (20-44); Mean Corpuscular HGB Conc 34 gm/dL (32-36); Mean Corpuscular Hemoglobin 29 pg (26-34); Mean Corpuscular Volume 85 fL (80-100); Monocytes Percent Auto 7.1 % (0.0-11.0); Neutrophils Absolute Auto 5.67 K/uL (1.7-7.0); Neutrophils Percent Auto 58.4 % (42.0-72.0); Platelet Count* 198 K/uL (140-440); RDW Coefficient of Variation % 12.6 % (11.5-15.5); Red Blood Count* 5.19 m/uL (4.00-5.20); White Blood Count* 9.72 K/uL (4.50-11.00)
[2024-09-28 00:49] LABS: Slide Review Reflex No
[2024-09-28] MEDS: LIDOCAINE 2% (PF) 5 ML VIAL EPIDURAL (01:02)
--- NOTE | 2024-09-28 01:04 | P.LDBA_ITS ---
Subjective History of Present Illness Time Seen by Provider: 01:00 Narrative: Patient is being admitted to Labor and Delivery for spontaneous onset of labor. She is a 29 year old at 40 0/7 weeks gestation. Her full history and physical was dictated by Dr. Vela on 09/06/2024. Please see this for details. She presented for care at about 2300 on 09/27/2024 with regular uterine contractions. At that time, her cervix was noted by nursing staff to be 2 cm dilated 50% effaced with vertex at high station. Upon recheck at 12:13 a.m. on 09/28/2024, contractions were stronger, and her cervix was 5 cm dilated. Patient requested epidural for labor analgesia. Specific Issues/Plans Partner: Robinson Son: Theron. Baby: surprise! # history of emergency bradycardia. Failed attempted vacuum delivery Anxious about , remains undecided Chance of successful : 74% TOLAC consent given on 04/13/2024 TOLAC consent signed: 07/06/2024 36 week growth scan: EFW 80%, AC 92%. 6lb 13 oz. SDP 6.8 cm. Vertex # Rh negative Rhogam: 07/06/24 # probable exposure to parvovirus B19. Elevated parvovirus IgG, normal IgM: Immunity Ultrasounds: Immunizations: COVID: 04/13/2024 Flu: 04/13/2024 RSV: 08/06/24 Tdap: 07/19/24 H&P: Dr. Vela on 09/06/24 OB - Problem Based A/P Additional Plan (1) Spontaneous onset of labor: Status: Acute (2) History of section complicating : Status: Acute Plan Epidural for pain management. Anticipate vaginal delivery. OR team in house secondary to TOLAC. Delivery/Labor/Induction Plan Plan: expectant management OB Result Labs Blood Type: A (-) negative Rubella: immune RPR/VDLR: nonreactive GBS Status: negative HBsAG: negative OB Exam Physical Exam Vital signs: Temp Pulse Resp BP Pulse Ox 97.6 F 72 16 142/75 H 100 09/27/24 23:00 09/28/24 01:02 09/27/24 23:00 09/28/24 01:02 09/28/24 01:02 Narrative: Alert, cooperative white female in distress only with contractions. Detailed Labor and Delivery Exam Patient Gravid: Yes Dilation (cm): 5 Cervix position: mid Consistency: soft Tachysystole: No Contraction intensity: Strong/Firm Comments: cervical exam per nursing staff Fetus (Single) Amniotic Membrane Status: intact Heart Rate Baseline: 115 Monitor Accelerations: Present Monitor Decelerations: None [employer] Variability: Moderate (6-25)
[2024-09-28] MEDS: ROPIVACAINE 0.2% 100 ml 100 ML 12 MG EPIDURAL (01:11)
--- NOTE | 2024-09-28 01:15 | PM.ANBPRC ---
[facility] Surgical History History of cholecystectomy ?Z90.49 - Acquired absence of other specified parts of digestive tract (ICD-10) S/P emergency section ?Z98.891 - History of uterine scar from previous surgery (ICD-10) Social History Narrative: SOCIAL HISTORY: Occupation: clinical research analyst. Marital status: . Adventism/cultural needs: no. Chemical or radiation exposure: no. Pre- tobacco use: no. Pre- alcohol use: 0-1. Current tobacco use: no. Current alcohol use: no. Recreational drug use: no. Dietary restrictions: no. Blood transfusion acceptable in an emergency: yes. PSYCHOSOCIAL HISTORY: History of depression or currently depressed: Denies. Current or past physical, emotional, or sexual mistreatment: Denies. Problems that will make it hard to make it to appointments: No. What is your current living situation?: I presently have a place to live Problems where you live: no known problems In the past 12 months, utilities in danger of being shut off: no In past 12 months, lack of transportation kept you from medical appts, meetings, work, or getting things needed for daily living: no In the past 12 mos, have been you worried that your food would run out before you had money to buy more?: never true In the past 12 mos, the food you bought just didn't last and you didn't have money to buy more?: never true Smoking Status: Never smoker Do you use any of these nicotine containing products: None How often do you have a drink containing alcohol: never How often do you have six or more drinks on one occasion: Never AUDIT-C Alcohol total score: 0 Non-prescribed substance use: denies use Caffeine: Yes How often does anyone, including family, friends and others, physically hurt you: never How often does anyone, including family, friends and others, insult or talk down to you: never How often does anyone, including family, friends and others, threaten you with harm: never How often does anyone, including family, friends and others, scream or curse at you: never Are you using contraception or practicing any form of control: Yes Meds Home Medications and Allergies Home Medications ?Medication ?Instructions ?Recorded ?Confirmed ?Type 103-folic acid 400 1 tab PO DAILY 07/09/22 09/27/24 History mcg-omeg3 32.5 mg-dha-fish oil chew tablet ( with DHA and Folic Acid) doxylamine succinate 25 mg tablet 25 mg PO QHS PRN 03/02/24 09/27/24 History (Unisom (doxylamine)) pyridoxine (vitamin B6) 100 mg 100 mg PO QDAY 03/02/24 09/27/24 History tablet magnesium 250 mg tablet 250 mg PO QDAY 08/16/24 09/27/24 History psyllium husk 0.4 gram capsule 0.4 g PO QDAY 08/16/24 09/27/24 History (Fiber (psyllium husk)) Allergies Allergy/AdvReac Type Severity Reaction Status Date / Time No Known Drug Allergies Allergy Verified 09/27/24 23:20 Results Labs Labs: Laboratory Results - last 24 hr 09/28/24 00:40 WBC 9.72 RBC 5.19 Hgb 15.2 Hct 44.2 MCV 85 MCH 29 MCHC 34 RDW Coeff of Lara 12.6 Plt Count 198 Neut % (Auto) 58.4 Lymph % (Auto) 32.2 [place] % (Auto) 7.1 Eos % (Auto) 0.9 Baso % (Auto) 0.3 Neut # (Auto) 5.67 Lymph # (Auto) 3.13 H [place] # (Auto) 0.70 Eos # (Auto) 0.09 Baso # (Auto) 0.03 Abs Immat Gran (auto) 0.11 Imm/Tot Granulo (auto) 1.1 Vital Signs Vital Signs: Last Vital Signs Temp 97.6 F 09/27/24 23:00 Pulse 76 09/28/24 01:14 Resp 16 09/27/24 23:00 BP 130/68 09/28/24 01:14 Pulse Ox 100 09/28/24 01:12 Anesthesia Procedures Epidural Insertion Patient Location: OB Start Time: 00:45 Stop Time: 01:15 Start Date: 09/28/24 Stop Date: 09/28/24 Reason for Block: primary anesthetic Patient Position: sitting Performed By: Chaim Griffiths Preanesthetic Checklist: IV checked, risks and benefits discussed, surgical consent, monitors and equipment checked, pre-op evaluation, timeout performed and anesthesia consent Prep: chlorhexidine gluconate Monitoring: blood pressure monitoring, engine monitor, continuous pulse oximetry and heart rate Approach: midline Vertebral Space: lumbar (1-5) Needle Type: Tuohy needle Injection Technique: continuous catheter (catheter) Needle gauge: 17 Needle Length (cm): 10 cm Needle Insertion Depth (cm): 6 Catheter Gauge: 19 Catheter Type: multi-orifice Catheter at skin depth (cm): 12 Test Dose Result: negative and lidocaine 1.5% with epinephrine 1 to 200,000
[2024-09-28] MEDS: LIDOCAINE 1 % PF 30 ML INJECTION (02:16)
[2024-09-28] MEDS: OXYTOCIN 30 unit/500 ML in NS 30 UNIT/500 ML BAG 300 UNIT IVPB (02:17)
--- NOTE | 2024-09-28 02:22 | W.PM.OBVAGDE ---
OB Procedure Vag Delivery Mother Details Mother Details: The patient is a 29 year-old, 2, Para 1001, admitted on 09/28/24 at 40 0/7 weeks gestation in active labor. : 2 Para: 1 Admission Date: 09/28/24 Additional Details Amniotic Membrane Status: intact Amniotic Membrane Rupture Date: 09/28/24 Amniotic Membrane Rupture Time: 01:34 Amniotic Membrane Fluid Description: Clear Analgesia/Anesthesia Type: Epidural Waterbirth: No Pitcoin: No Intrapartal Events: Precipitous Labor <3 Hrs Labor Onset: 00:10 Complete: 01:27 Pushin:34 Heart: heart tones during second stage were 120 baseline with variable decelerations. Delivery Details Delivery Date: 09/28/24 Delivery Time: 01:51 Route of delivery: Gender: Male Infant Viability: Alive; Heart Rate Present Position at Delivery: OA (With right nuchal arm) Delivery Details: Delivered via spontaneous vaginal delivery. was placed on maternal abdomen.? Cord was clamped and cut after a 30-60 second delay. Nose and mouth were bulb suctioned.? weight pending. 1 Minute Interval Total Score: 8 5 Minute Interval Total Score: 9 Additional Details Shoulder Dystocia: No Placenta Delivery Time: 01:55 Placental Delivery Description: Spontaneous Delivery repair: Chromic (3-0) Procedure Done: Global Blood Loss: 180 Laceration: Perineal - 2nd Degree Episiotomy Description: None Blood Loss Measurement Type: QBL Bakri Used: No Sponge/Need Count Correct: Yes Cord Vessel Description: 3 Vessels Event Summary Status: Mother and infant were stable after delivery. Disposition: floor
[2024-09-28] MEDS: IBUPROFEN 600 MG TABLET PO ×3 (04:59→18:26)
[2024-09-28] MEDS: DOCUSATE SODIUM 100 MG CAPSULE PO (07:37)
[2024-09-28] MEDS: ACETAMINOPHEN 500 MG TABLET 1000 MG PO ×3 (07:37→22:34)
--- NOTE | 2024-09-28 08:22 | PM.ANPOST ---
Post Anesthesia Note Post Anesthesia Note Patient seen: Inpatient Respiratory Status: adequate Cardiovascular Status: adequate Mental Status: baseline Pain: adequate Temp: baseline Anesthetic awareness: N/A Complications: none Follow care: none
[2024-09-29 01:56] VITALS: BP 110/71; PULSE 98; RESP 18; TEMP 36.6
[2024-09-29] MEDS: IBUPROFEN 600 MG TABLET PO ×2 (01:57→07:59)
[2024-09-29] MEDS: ACETAMINOPHEN 500 MG TABLET 1000 MG PO (04:28)
[2024-09-29 07:01] LABS: Hemoglobin* 11.6 gm/dL (12.0-16.0)
--- NOTE | 2024-09-29 07:28 | PM.OBDSVD1 ---
DS: Providers Provider Date Seen: 09/29/24 Date of admission: 09/28/24 00:23 Primary care physician: Zoë Mora PA-C Admitting Clinician: Elizabeth Guerrero MD Attending Physician on discharge: Elizabeth Guerrero MD Date of Discharge: 09/29/24 DS: Diagnosis Discharge Diagnosis (1) Lactating mother: Status: Acute (2) care following vaginal delivery: Status: Acute (3) (vaginal after ): Status: Acute (4) Hemorrhoids, internal: Status: Acute Exam Narrative: Exam Narrative: GENERAL APPEARANCE:? normal affect, alert, no distress? MOOD:? appropriate? CHEST:? clear to auscultation and percussion? HEART:? regular rate and rhythm? ABDOMEN:? soft, non-tender the uterine fundus is U/2 and is appropriate for the stage of recovery.? PERINEUM:? mild edema of the perineum, there is a 2nd degree laceration that is healing well.? EXTREMITIES:? normal and no edema? Const: Vital Signs, click to edit/add: Vital Signs - 24 hr 09/28/24 07:48 09/28/24 11:22 09/28/24 16:25 Temperature 98.1 F 98.1 F 97.0 F L Pulse Rate [Pulse Oximeter] 68 73 87 Respiratory Rate 16 15 16 Blood Pressure [Le ft Arm] 118/75 115/75 124/79 Pulse Oximetry 97 98 Oxygen Delivery Me thod Room Air Room Air 09/28/24 20:00 09/29/24 01:56 Temperature 97.6 F 97.8 F Pulse Rate [Pulse Oximeter] 80 98 Respiratory Rate 16 18 Blood Pressure [Le ft Arm] 110/73 110/71 Pulse Oximetry 97 Oxygen Delivery Me thod Room Air Room Air Documenting provider has reviewed patient's vital signs: yes OB - DS: Summary Hospital Course Hospital Course: Palma is a 29 year old G 2 P 2 at 40.0 weeks gestation that was admitted to the Center on 09/28/24 for spontaneous labor. She had an uncomplicated vaginal after delivery. She delivered a viable male . She is breast feeding and feels it is going much better than her last experience. the patient has done well. Her pain is well controlled with current medications.? She has no new complaints.? Urinary output is adequate and she is voiding without difficulty.? Has a good appetite, is tolerating a general diet, is passing flatus, and has not yet had a bowel movement.? Has scant amount of rubra lochia.? She is ambulating well. She is requesting a prescription for cream to treat her hemorrhoid symptoms. Encouraged keeping stools soft to help them heal as well. She is planning NFP for PP contraception. Did encourage condoms until she is adequately able to track her ovulation cycles. States that she did return to menstruation around 5 weeks after her last delivery. Peripartum Data Infant delivery method: Vaginal Laceration description: Perineal - 2nd Degree Episiotomy description: None complications: none Infant Gender: Male Infant Discharge Plan: Home Status at Discharge Functional status at discharge: independent ambulation Overall status at discharge: patient is progressing back to baseline Time Spent with Patient Time attestation: Total time spent providing and/or coordinating discharge services: Discharge Plan Discharge Disposition: Home, Self-Care Date of Admission: 09/28/24 00:23 Attending Provider on Discharge: Lorie Kee Primary Care Provider: Zoë Mora Condition: Stable Anticipated Discharge Date/Time: 09/29/24 10:00 Discharge Medications: New docusate sodium 100 mg Capsule 100 mg PO DAILY Qty: 120 0RF Rx Instructions: Take 1-2 tablets daily as needed for constipation. ibuprofen 600 mg Tablet 600 mg PO Q6H PRNQty: 60 0RF djqjmykwk-lbbpotjwziuvhg-hcth 2.8-0.55 % gel 1 applic MI BID PRN (Reason: hemorrhoids) 7 Days Qty: 100 0RF Rx Instructions: Limit use to 7 days or less. Continued psyllium husk [Fiber (psyllium husk)] 0.4 gram capsule 0.4 g PO QDAY magnesium 250 mg tablet 250 mg PO QDAY with DHA-Folic Acid 400-32.5 mcg-mg tablet,chewable 1 tab PO DAILY pyridoxine (vitamin B6) 100 mg tablet 100 mg PO QDAY Unisom (doxylamine) 25 mg tablet 25 mg PO QHS PRN Discharge Orders: Discharge Order (Routine); Ordered 09/29/24 Ordered By: Lorie Kee Patient Education: OB Vaginal/Breast Feeding Additional Instructions: Discharge instructions were reviewed with the patient including signs and symptoms of infection and home going medications.? Lifting Restrictions: 20 pounds for 6? weeks? ?? Do not drive while taking narcotic pain meds.? Off Work or School for 6 weeks.? ?? Symptoms to report to doctor:? -Bleeding that saturates more than one pad per hour? -Passing clots larger than the size of a golf ball? -Pain not relieved by prescribed medication? -Fever above 100.4 degrees Fahrenheit? -A foul vaginal odor? -Difficulty in emotions, mood and functions? -Thoughts of hurting yourself and/or ? -Painful, reddened area in your breast? -Any drainage, redness or tenderness in your IV/epidural site? -Severe headache that doesn't improve after taking medications? -Changes in vision, including temporary loss of vision, blurred vision, and/or light sensitivity? -Upper abdominal pain (usually under ribs on the right side)? -Decrease in urination or painful, frequent urinating? -Chest pain? -Shortness of breath? -Tenderness or pain with redness and/swelling in the calf(s) of your leg? ?? Follow Up in clinic in 2 and 6 weeks.? ?? consultation services are available to all mothers and babies for the first year after delivery.? To make an appointment, please call [phone].? Activity Level: Activity as Tolerated Discharge Diet: Regular Follow Up Appointments: [facility] [Provider Group] Forms: MyHealth Info Instructions
[2024-09-29] MEDS: DOCUSATE SODIUM 100 MG CAPSULE PO (07:59)
[2024-09-29 08:04] VITALS: BP 113/66; PULSE 70; RESP 16; TEMP 36.7; O2SAT 95
[2024-09-29 10:43] LABS: Rapid Plasma Reagin (RPR) Non Reactive (Non Reactive)
== END 2024-09-29 12:12 | disposition home or self-care (01) | DRG 807 ==
LOC: OB 00:24
PROVIDERS: Admitting Provider Obstetrics & Gynecology; PCP Physician Assistant; Visit Provider Obstetrics & Gynecology
DX: O34.211 Maternal care for low transverse scar from previous cesarean delivery (principal); Z37.0 Single live birth; Z3A.40 40 weeks gestation of pregnancy; O26.893 Other specified pregnancy related conditions, third trimester; Z67.11 Type A blood, Rh negative; O70.1 Second degree perineal laceration during delivery; O62.3 Precipitate labor; K64.8 Other hemorrhoids; M41.9 Scoliosis, unspecified
CPT/HCPCS: 01967; 36415; 85018; 85025; 85461; 86592; 86850; 86870; 86880; 86900; 86901; G0463; A9270; J2003; J2371; J2791; J2795; J7120

== ENCOUNTER 2024-11-08 08:56 | Outpatient (CLI) | payer OTHER, SELFPAY ==
--- NOTE | 2024-11-08 11:51 | W.PM.LAC.MC ---
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, criminal justice social worker Delivery Information Delivery type: Vaginal Gestational Age: 40 Gestational Weight For Age: AGA Weight: 3.66 kg Discharge Weight: 3.462 kg Percentage weight loss: 5.5 Baby's Information Baby's Age at Visit: 6 weeks Baby's Provider or Clinic: [facility] Jaundice: No Past Experience Past Experience: Yes (x1 year, started ok, challenging btwn weeks 5-11, then good after that) Current Frequency of Day Feedings: every 2.5-3 hours, needs waking sometimes Frequency of Night Feedings: 6 hr sleep stretch, then 3-4 hour sleep Both Breasts: Yes Suck: strong, Latch: comfortable Length of Time: 15 min on first side, then 10-15 on 2nd side Goals: 1 year Pumping Pumping: Yes Quantity Pumped: 3-6oz in the morning, 6-7 oz when do bottle feeding at night Supplementing EBM Supplement: Yes (takes 3.5 oz bottle a bedtime, had stopped supp daytime feedings) Formula Supplement: No Baby Elimination Number of Wet Diapers a Day: ea feeding Number of BM a Day: 2-3/day; yellow, seedy in color Breast/Nipple Condition Breast Information: Breasts are symmetrical with rounded lower quadrants, intramammary distance is less than 1.5 inches. No erythema. Nipples are supple, everted prior to feeding. No nipple pain Breast Shape: Round Engorgement: No Maternal Nipple Condition - Left: Common Nipple Maternal Nipple Condition - Right: Common Nipple Sore Nipples: No Baby Assessment Skin: Normal Tongue/frenulum: Normal/elastic and Restricted mid-range (perhaps slight posterior tongue tightness evidenced by tongue drop/clicking during feeding/bottling) Palate: Average Lips: Relaxed and Other (closed at rest and when sleeping) Jaw Alignment: Symmetrical Mucosa: [place], moist Onsite Observation Pre-Feed weight: 3.856 kg (no weight gain from [facility] 4 days ago) Post-Feed weight: 3.932 kg Milk Transferred (mL): 76 Position: Cross cradle Attachment/latch-on achieved: Easily Suck pattern: Suck burst and normal rest Swallow: Audible, consistent (more on first side then second side) Behavior following feed: Alert, content Pre-Nursing Left Nipple: Within Normal Limits Pre-Nursing Right Nipple: Within Normal Limits Post-Nursing Left Nipple: Within Normal Limits Post-Nursing Right Nipple: Within Normal Limits Assessments/Interventions Assessments/Interventions: observation: Chidi latches easily to RIGHT breast in cross cradle position, starts with rhythmic suckling but pulls bottom lip in Mom relatches baby with wider deeper latch and he again pulls bottom lip in and then begins with clicking sound during nursing which coincides with her letdown. Continued to work with mom and baby to get and keep his lower lip out; about 7 minutes into feeding he is able to maintain this latch which will help him more effectively transfer milk. Nurses for 15 minutes Milk transferred: 70ml Latched to mom's LEFT breast; wider, deeper latch on this side, keeps lip out for most of the feeding Appears to be nursing well but not as strongly; after 10 minutes he is sleepy at the breast Milk transfered: 6ml Total milk transferred 76ml Expected need for feeding 3.25-3.5 oz (98-105ml) based on his caloric needs and 7 feedings/day Education provided: Asymmetric latch technique for wide/deep latch to increase milk, Transfer for baby and increase comfort for mom, Alternative feeding methods (SNS, cup, finger feeding, bottling), Pumping for milk management and Milk collection, storage Handouts Provided: Suck training exercises or baby Referral info for Pediatric Dentist, consideration of possible posterior tongue tie Feeding Plan: Feed every 3 hours during the day; watch for swallowing after 10 min on 1st side, if not hearing, then switch to 2nd side to prevent baby fatiguing during feeding Consider switch nursin min 1st, 10 min 2nd, then 5 min 1st and 5 min 2nd to take advantage of letdowns Offer supplement after every other feeding, 1oz, more if he finishes off bottle; monitor for contentedness and alertness to determine if he needs supplement after ea feeding Suck training exercises to strengthen tongue for more effective/efficient feedings-especially tug of war, toothbrushing for lateralization, around the [place], jaw massage and guppy pose for tension release Continue with bottle before bed; if he finishes 3.5 oz and acts hungry, ok to go up to 4 oz Discussed other bottle opptions to more closely mimic : Rama Warner wide neck balance and standard to see fi this decreases clicking Mom to continue with current pumping routine Follow-Up Suggested follow up: Appointment in 1 week Time Spent Time spent with patient (min): 90 (reviewing EMR and face to face with patient and ) Meds Home Medications and Allergies Home Medications ?Medication ?Instructions ?Recorded ?Confirmed ?Type 103-folic acid 400 1 tab PO DAILY 07/09/22 10/13/24 History mcg-omeg3 32.5 mg-dha-fish oil chew tablet ( with DHA and Folic Acid) psyllium husk 0.4 gram capsule 0.4 g PO QDAY 08/16/24 10/13/24 History (Fiber (psyllium husk)) Allergies Allergy/AdvReac Type Severity Reaction Status Date / Time No Known Drug Allergies Allergy Verified 10/13/24 08:48
== END 2024-11-08 08:57 | disposition home or self-care (01) ==
PROVIDERS: PCP Physician Assistant; Visit Provider Obstetrics & Gynecology
DX: Z39.1 Encounter for care and examination of lactating mother (principal)
CPT/HCPCS: G0463

== ENCOUNTER 2024-12-03 10:04 | Outpatient (CLI) | payer OTHER, SELFPAY ==
--- NOTE | 2024-12-03 10:15 | CRLHL7_ITS ---
For Patients: As a result of the Century Cures Act, medical imaging exams and procedure reports are released immediately into your electronic medical record. You may view this report before your referring provider. If you have questions, please contact your health care provider. INDICATION: irregular menstruation , 09/28/24 COMPARISON: None. TECHNIQUE: 2D patel-scale and color Doppler images were acquired of the pelvis using a transabdominal and transvaginal approach. Transvaginal imaging performed to better visualize the endometrial stripe and ovaries. FINDINGS: Sonographic images demonstrate a normal size and smooth outer contour of the uterus. Uterus measures 7.1 cm in length by 4.4 cm in AP diameter by 4.9 cm in transverse dimension. The myometrium has a normal uniform echotexture. The endometrial lining contains a small amount of fluid and measures 5 mm in composite thickness. The right ovary measures 3.5 x 1.5 x 2.1 cm in size and the left ovary measures 3.0 x 1.4 x 1.3 cm. The ovaries demonstrate normal arterial and venous blood flow on color Doppler analysis. There are no suspicious fluid collections within the cul-de-sac. IMPRESSION: Mild fluid in the endometrial canal. Endometrial thickness 5 millimeters. No increased vascularity to suggest retained products. Dictated by Jayson Hua MD @ 12/06/2024 6:26:10 AM (Electronically Signed)
== END 2024-12-03 10:05 | disposition home or self-care (01) ==
LOC: US 10:04
PROVIDERS: PCP Physician Assistant; Visit Provider Obstetrics & Gynecology
DX: N92.6 Irregular menstruation, unspecified (principal); R93.89 Abnormal findings on diagnostic imaging of other specified body structures; O34.219 Maternal care for unspecified type scar from previous cesarean delivery; Z39.2 Encounter for routine postpartum follow-up
CPT/HCPCS: 76830; 76856